=== PATIENT | female | born 1985 | race Caucasian/White ===

== ENCOUNTER → 2018-07-30 | Day surgery (SDC) | payer OTHER ==
[~2018-07-30] MED LIST: DEXAMETHASONE SOD PHOS INJ 4 MG/ML VIAL ONE; FENTANYL CITRATE/PF 100MCG/2 ML INJ ONE; KETOROLAC TROMETHAMINE 30 MG/ML VIAL ONE; LIDOCAINE HCL 2% LOCAL INJ 5 ML SDV VIAL INJ ONE; LOSARTAN POTASS25 MG PO; MIDAZOLAM HCL 2 MG/2 ML VIAL ONE; MULTI-VITAMIN1 EACH PO; NATURE-THROID65 MG PO; OFLOXACIN 0.3% (OTIC SOL) 5 ML BTL OT ONE; ONDANSETRON HCL INJ 2MG/ML 2ML 2 MG/ML VIAL ONE; OXYMETAZOLINE HCL 0.05% NAS 1 SPRAY BTL ONE; PROPOFOL IV EMULSION 10 MG/ML 20 ML VIAL ONE; ROCURONIUM BROMIDE 10 MG/ML 5ML VIAL ONE; SEVOFLURANE INHAL SOLN 250 ML PEN BTL ONE; SUCCINYLCHOLINE 200 MG/10 ML SYR ONE
--- OUTSIDE RECORDS SUMMARY | 2018-07-30 07:08 | XMS REPORT | Clinical Summary ---
Author Author [facility] Organization [facility] Address Unknown Phone Unavailable Care Team Providers Care Commercial Pest Control Representative Name Role Phone Asked, No Pcp PCP Unavailable Allergies Comments Active Allergy Reactions Severity Noted Date Levofloxacin 05/16/2017 Headache and can't walk Sulfa (Sulfonamide Other (See 02/04/2017 Antibiotics) Comments) Medications End Date Status Medication Sig Dispensed Refills Start Date Active thyroid, pork, (ARMOUR Take 45 mg by 0 THYROID) 30 mg tablet mouth daily. Active Problems Not on file Encounters Care Team Description Date Type Specialty Garth Medrano MD 03/18/2018 Hospital Pulmonology Encounter Garth Medrano MD Breath shortness 03/11/2018 Hospital Radiology Encounter Garth Medrano MD Shortness of breath (Primary Dx) 03/11/2018 Transcribe Access Orders after 07/29/2017 Social History Date Tobacco Use Types Packs/Day Years Used Never Smoker Smokeless Tobacco: Never Used Alcohol Use Drinks/Week oz/Week Comments Yes rarely Sex Assigned at Date Recorded Not on file Industry Job Start Date Occupation Not on file Not on file Not on file Travel End Travel History Travel Start No recent travel history available. Last Filed Vital Signs Not on file Plan of Treatment Care Team Description Date Type Specialty Eduin Albrecht [place] [id number] [address] [phone] 08/20/2018 Office Visit Family Medicine Health Maintenance Due Date Last Done Comments CERVICAL CANCER SCREENING 2005 INFLUENZA VACCINE 10/31/2018 Procedures Comments Procedure Name Priority Date/Time Associated Diagnosis SPIROMETRY PRE AND POST Routine 03/18/2018 Shortness of breath WITH BRONCHILATOR 10:55 AM ELECTROLYSIS NEEDLE OPERATOR XR CHEST 2 VW Routine 03/11/2018 Breath shortness 12:18 PM ELECTROLYSIS NEEDLE OPERATOR after 07/29/2017 Results * XR Chest 2 Vw (03/11/2018 12:18 PM ELECTROLYSIS NEEDLE OPERATOR) Narrative Performed At EXAMINATION:XR CHEST 2 VW [facility] CLINICAL HISTORY:R06.02 Shortness of breath COMPARISON: March 14, 2017 . IMPRESSION: Cardiomediastinal silhouette and pulmonary vasculature are within normal limits. Lungs are clear. No pleural effusion or pneumothorax. Bones are unremarkable. [id number] Procedure Note Hm Interface, Radiology Results Incoming - 03/11/2018 12:22 PM ELECTROLYSIS NEEDLE OPERATOR EXAMINATION: XR CHEST 2 VW CLINICAL HISTORY: R06.02 Shortness of breath COMPARISON: March 14, 2017 . IMPRESSION: Cardiomediastinal silhouette and pulmonary vasculature are within normal limits. Lungs are clear. No pleural effusion or pneumothorax. Bones are unremarkable. [id number] Performing Organization Address City/State/Zipcode Phone Number [facility] [address] [place] [address] after 07/29/2017 Insurance Payer Benefit Subscriber ID Type Phone Address Plan / Group KELLEY BENSON OPEN xxxxxxxxxxx O ACCESS/NET WORK (Home) [place], [place] [id number] Advance Directives Patient has advance care planning documents on file. For more information, edinson ann contact: Aaron Roe [address] [place] [address]
[2018-07-30 11:08] VITALS: BP 118/80
--- NOTE | 2018-07-30 17:20 | Operative Report ---
DATE OF PROCEDURE: 07/30/2018 SURGEON: Miky Gary MD PREOPERATIVE DIAGNOSIS: Right chronic otitis media. POSTOPERATIVE DIAGNOSIS: Right chronic otitis media. OPERATIVE PROCEDURES: Right myringotomy and tubes with examination under anesthesia on the left ear, rigid nasal endoscopy, and biopsy of nasopharynx on the right. ANESTHESIA: Anesthesiology group. INDICATIONS: This 32-year-old female has persistent fullness in the ear. The patient on examination was noted to have negative pressure in the right side. The TM was normal on the left. The patient had a CT scan of the temporal bone, which showed effusion in the right ear. Audiogram that was done showed the patient has a mild conductive hearing loss on the right side with normal pure tone in the left. Speech discrimination was 100% bilaterally. After many months of antibiotics, topical nasal steroid, systemic steroid with no improvement, it was decided that right myringotomy and examination under anesthesia and rigid nasal endoscopy and biopsy of nasopharynx and other necessary procedure will be beneficial for her. DESCRIPTION OF PROCEDURE: The patient was taken to operating room, put under general anesthesia, and endotracheally intubated. The right ear was examined. The ear canal was debrided. The myringotomy was done in the anterior-superior quadrant. No obvious effusion was noted in the middle ear cleft. Eric grommet tube was inserted. The left ear was examined and the canal was debrided. The TM was not disturbed. The biopsy of nasopharynx was undertaken. Afrin was instilled into the nasal cavities on either side. The nasal cavity on either side was examined with 0-degree endoscope. No abnormality was noted. The nasopharynx was examined using a Trevon-Cut forceps. The right nasopharynx was biopsied and sent for permanent section. The patient tolerated the above procedure well with minimal blood loss. She was able to be transferred to recovery room in stable condition. Miky Gary MD DKH/MODL /[id number]
== END | disposition home or self-care (01) ==
LOC: OR 07:05
PROVIDERS: ATTEND Otolaryngology Otolaryngology/Facial Plastic Surgery
DX: H66.91 Otitis media, unspecified, right ear (principal); H90.2 Conductive hearing loss, unspecified; I10 Essential (primary) hypertension; E03.9 Hypothyroidism, unspecified; F32.9 Major depressive disorder, single episode, unspecified; F41.9 Anxiety disorder, unspecified; F17.210 Nicotine dependence, cigarettes, uncomplicated; Z88.2 Allergy status to sulfonamides
CPT/HCPCS: 42999; 69399; 69436; 81025; 88305; 93005; J1100; J1885; J2001; J2250; J2405; J2704

== ENCOUNTER → 2023-11-27 | Day surgery (SDC) | payer OTHER ==
[~2023-11-27] MED LIST changes: +ACETAMINOPHEN 1000 MG/100 ML IV ONE; +ACETAMINOPHEN/CODEINE 300MG - 30MG TAB ONE; +DEXAMETHASONE SOD PHOS INJ 4 MG/ML SDV ONE; -DEXAMETHASONE SOD PHOS INJ 4 MG/ML VIAL ONE; +DEXMEDETOMIDINE HCL 200 MCG/2 ML VIAL ONE; +EPINEPHRINE HCL 1:1000 1ML 1 MG/ML AMP ONE; +FAMOTIDINE 20 MG/2 ML VIAL IV ONE; -KETOROLAC TROMETHAMINE 30 MG/ML VIAL ONE; +NP THYROID60 MG PO; +OFLOXACIN 0.3% (OTIC SOL) 5 ML BTL ONE; -OFLOXACIN 0.3% (OTIC SOL) 5 ML BTL OT ONE; -OXYMETAZOLINE HCL 0.05% NAS 1 SPRAY BTL ONE; -ROCURONIUM BROMIDE 10 MG/ML 5ML VIAL ONE; -SUCCINYLCHOLINE 200 MG/10 ML SYR ONE
[2023-11-27] MEDS: LACTATED RINGER'S 1,000 ML ONE (08:52)
[2023-11-27 10:13] VITALS: TEMP 98.4
[2023-11-27 11:10] VITALS: BP 112/79; PULSE 81; RESP 16; O2SAT 98
== END | disposition home or self-care (01) ==
LOC: OR 08:09
PROVIDERS: ATTEND Otolaryngology Otolaryngology/Facial Plastic Surgery
DX: H65.22 Chronic serous otitis media, left ear (principal); H66.91 Otitis media, unspecified, right ear; H90.3 Sensorineural hearing loss, bilateral; E03.9 Hypothyroidism, unspecified; E66.9 Obesity, unspecified; F41.9 Anxiety disorder, unspecified; F32.A Depression, unspecified; Z79.899 Other long term (current) drug therapy; Z88.2 Allergy status to sulfonamides
CPT/HCPCS: 69436; 81025; J0131; J0171; J1100; J2001; J2250; J2405; J2704; J3010; J7121